=== PATIENT | female | born 1990 | race American Indian/Alaskan Native ===

== ENCOUNTER 2020-01-25 08:43 | Emergency (ER) | payer SELFPAY ==
[2020-01-25 09:21] VITALS: BP 114/77
--- NOTE | 2020-01-25 10:05 | XRay Report ---
RIGHT ANKLE HISTORY: COMPARISON: None. TECHNIQUE: 4 views of the right ankle obtained. FINDINGS: Bones: No fracture or dislocation. Joint spaces: Maintained. Soft tissues: No significant abnormality. Additional findings: None. IMPRESSION: 1. No significant abnormality. Signer Name: Jamari Rondon MD Signed: 01/25/2020 10:01 AM Workstation Name: [id number]
--- NOTE | 2020-01-25 11:52 | Emergency Department Report ---
ED General Adult HPI - General Chief complaint: Extremity Injury, Lower Stated complaint: RT ANKLE INJURY Time Seen by Provider: 01/25/20 11:40 Source: patient Mode of arrival: Wheelchair Limitations: No Limitations - History of Present Illness Initial comments: 29-year-old -[place] female patient presents with complaints of right ankle pain and swelling x2 days. Patient states pain began after falling off a truck and twisted her ankle inward yesterday. She rates her pain as a 10/10 in severity and denies any numbness/tingling/weakness in her foot/ankle or decreased movement. She states the pain occurs with putting weight on her ankle and foot only. Severity scale (0 -10): 0 - Related Data Previous Rx's Medication Instructions Recorded Last Taken Type Acetaminophen/Codeine [Tylenol 1 tab PO Q8H PRN #6 tab 01/25/20 Unknown Rx /Codeine # 3 tab] Diclofenac Sodium 75 mg PO BID PRN #14 tablet. 01/25/20 Unknown Rx Allergies Allergy/AdvReac Type Severity Reaction Status Date / Time No Known Allergies Allergy Unverified 01/25/20 09:21 ED Review of Systems ROS: Stated complaint: RT ANKLE INJURY Other details as noted in HPI Constitutional: denies: malaise, weakness Musculoskeletal: joint swelling, arthralgia Skin: denies: change in color Neurological: abnormal gait (Secondary to pain). denies: numbness, paresthesias ED Past Medical Hx - Past Medical History Previous Medical History?: Yes Hx Asthma: Yes - Surgical History Past Surgical History?: No - Medications Home Medications: Home Medications Medication Instructions Recorded Confirmed Last Taken Type Acetaminophen/Codeine [Tylenol 1 tab PO Q8H PRN #6 tab 01/25/20 Unknown Rx /Codeine # 3 tab] Diclofenac Sodium 75 mg PO BID PRN #14 tablet. 01/25/20 Unknown Rx ED Physical Exam - General Limitations: No Limitations General appearance: alert, in no apparent distress - Head Head exam: Present: atraumatic, normocephalic - Eye Eye exam: Present: normal appearance. Absent: scleral icterus - Respiratory Respiratory exam: Absent: respiratory distress - Cardiovascular Cardiovascular Exam: Present: regular rate - Expanded Lower Extremity Exam Right Ankle exam: Present: full ROM, tenderness (Lateral ), swelling (Mild lateral). Absent: ecchymosis, erythema Foot/Toe exam: Present: full ROM, tenderness. Absent: ecchymosis Neuro vascular tendon exam: Present: no vascular compromise - Neurological Exam Neurological exam: Present: alert, oriented X3 - Psychiatric Psychiatric exam: Present: normal affect, normal mood - Skin Skin exam: Present: warm, dry, intact, normal color. Absent: rash, cyanosis, diaphoretic, ecchymosis ED Course Vital Signs 01/25/20 09:19 Temperature 98.1 F Pulse Rate 74 Respiratory 18 Rate Blood Pressure 114/77 [Right] O2 Sat by Pulse 100 Oximetry ED Medical Decision Making - Radiology Data Radiology results: report reviewed RIGHT ANKLE HISTORY: COMPARISON: None. TECHNIQUE: 4 views of the right ankle obtained. FINDINGS: Bones: No fracture or dislocation. Joint spaces: Maintained. Soft tissues: No significant abnormality. Additional findings: None. IMPRESSION: 1. No significant abnormality. - Medical Decision Making 29-year-old -[place] female patient presents with complaints of right ankle pain and swelling x2 days. Patient states pain began after falling off a truck and twisted her ankle inward yesterday. She rates her pain as a 10/10 in severity and denies any numbness/tingling/weakness in her foot/ankle or decreased movement. She states the pain occurs with putting weight on her ankle and foot only. X-rays negative for any acute bony abnormalities. Patient placed in Uriel wrap and provided with crutches. Rice method and NSAIDs for treatment discussed. Patient given orthopedic follow-up for as needed. Strict return precautions were discussed in detail with patient who verbalized understanding. Critical care attestation.: If time is entered above; I have spent that time in minutes in the direct care of this critically ill patient, excluding procedure time. ED Disposition Clinical Impression: Right ankle sprain Qualifiers: Encounter type: initial encounter Involved ligament of ankle: other ligament Qualified Code(s): S93.491A - Sprain of other ligament of right ankle, initial encounter Disposition: TO HOME OR SELFCARE Is pt being admited?: No Condition: Stable Instructions: Ankle Sprain Prescriptions: Diclofenac Sodium 75 mg PO BID PRN #14 tablet.dr CAIN Reason: pain Acetaminophen/Codeine [Tylenol /Codeine # 3 tab] 1 tab PO Q8H PRN #6 tab PRN Reason: Pain , Severe (7-10) Referrals: PRIMARY CARE, [Primary Care Provider] - 3-5 Days EDU ZAMARRIPA MD [Staff Physician] - 3-5 Days
== END 2020-01-25 12:05 | disposition home or self-care (01) ==
LOC: ED 08:43
DX: S93.491A Sprain of other ligament of right ankle, initial encounter (principal); J45.909 Unspecified asthma, uncomplicated; Z79.899 Other long term (current) drug therapy; X50.1XXA Overexertion from prolonged static or awkward postures, initial encounter; Y93.89 Activity, other specified; Y92.89 Other specified places as the place of occurrence of the external cause; Y99.8 Other external cause status
CPT/HCPCS: 99283